=== PATIENT | female | born 1950 | race Caucasian/White ===

== ENCOUNTER 2020-07-15 11:32 | Inpatient (IN) | payer MEDICARE, SELFPAY ==
[2020-07-15] MEDS ORDERED: Albuterol 200 PUFF (6.7GM INHALER) ONE ×2 (12:30→13:07)
[2020-07-15 12:41] LABS: Hemoglobin 13.8 g/dL (12.0-16.0); Mean Corpuscular HGB CONC 32.2 g/dL (32.0-36.0); Mean Corpuscular Hemoglobin 31.8 pg (27.0-31.0); Mean Corpuscular Volume 98.6 fL (78.0-98.0); Mean Platelet Volume 10.3 fL (7.4-10.4); Platelet Count 268 thou/uL (130-400); RBC Distribution Width 14.7 % (11.5-14.5); Red Blood Cell (RBC) Count 4.36 mill/uL (4.20-5.40)
[2020-07-15 13:02] LABS: ALT (SGPT) 13 U/L (8-55); AST (SGOT) 17 U/L (5-34); Albumin 3.7 g/dL (3.4-4.8); Alkaline Phosphatase 185 U/L (40-110); Anion Gap 20 mmol/L (10-20); BUN (Urea Nitrogen) 26 mg/dL (9.8-20.1); Bilirubin, Total 0.5 mg/dL (0.2-1.2); Calc. Creatinine Clearance 0 mL/min (70-130); Calcium 9.1 mg/dL (7.8-10.44); Carbon Dioxide 24 mmol/L (23-31); Chloride 98 mmol/L (98-107); Globulin 3.5 g/dL (2.4-3.5); Glucose 141 mg/dL (80-115); Potassium 3.7 mmol/L (3.5-5.1); Protein, Total 7.2 g/dL (5.8-8.1); Sodium 138 mmol/L (136-145)
[2020-07-15 13:07] LABS: Band 4 % (5-11); Eosinophils 1 % (0-10); Lymphocytes 5 % (21-51); MDiff Complete? YES; Macrocytosis SLIGHT = 6-15 cells (100X) (0-5/hpf); Monocytes 4 % (0-10); Neutrophil 84 % (42-75); Platelet Morphology Comment Appears Adequate; Polychromasia MODERATE = 3-4 cells (100X) (0-2/hpf); White Blood Cell (WBC) Count 22.9 thou/uL (4.8-10.8)
[2020-07-15 13:31] LABS: CKMB 1.1 ng/mL (0-6.6)
[2020-07-15 13:39] LABS: SARS-CoV-2 NAA Rapid Test Not Detected (NotDetected)
[2020-07-15] MEDS ORDERED: Aspirin 325 MG TAB ONE (15:09)
[2020-07-15] MEDS ORDERED: Enoxaparin Sodium 60 MG/0.6 ML SYRINGE ONE (15:09)
[2020-07-15] MEDS ORDERED: Ondansetron PF 4 MG/2 ML Vial ONE (15:19)
[2020-07-15] MEDS ORDERED: Ondansetron ODT 4 MG TAB PO PRN (15:47)
[2020-07-15] MEDS ORDERED: Acetaminophen 325 MG TAB PO PRN (15:47)
[2020-07-15 16:39] LABS: Troponin I 0.178 ng/mL (< 0.028)
[2020-07-15 17:13] VITALS: BMI 19.5
[2020-07-15] MEDS: Nicotine 21 MG PATCH TD SCH (17:53)
[2020-07-15 18:59] LABS: Troponin I 0.172 ng/mL (< 0.028)
[2020-07-15] MEDS: Enoxaparin Sodium 60 MG/0.6 ML SYRINGE SC SCH (22:18)
[2020-07-16 05:05] LABS: #Basophils 0.1 thou/uL (0.0-0.2); #Eosinphils 0.1 thou/uL (0.0-0.7); #Lymphocytes 1.5 thou/uL (1.20-3.40); #Monocytes 1.5 thou/uL (0.11-0.59); %Basophils 0.3 % (0.0-1.0); %Eosinophils 0.3 % (0.0-10.0); %Lymphocytes 6.9 % (21.0-51.0); %Monocytes 6.9 % (0.0-10.0); %Neutrophils 85.6 % (42.0-75.0); Mean Corpuscular HGB CONC 32.3 g/dL (32.0-36.0); Mean Corpuscular Hemoglobin 31.8 pg (27.0-31.0); Mean Corpuscular Volume 98.2 fL (78.0-98.0); Mean Platelet Volume 10.7 fL (7.4-10.4); Platelet Count 295 thou/uL (130-400); RBC Distribution Width 14.6 % (11.5-14.5); Red Blood Cell (RBC) Count 3.77 mill/uL (4.20-5.40)
[2020-07-16 05:23] LABS: Anion Gap 19 mmol/L (10-20); BUN (Urea Nitrogen) 31 mg/dL (9.8-20.1); Calc. Creatinine Clearance 56 mL/min (70-130); Calcium 9.4 mg/dL (7.8-10.44); Carbon Dioxide 26 mmol/L (23-31); Chloride 99 mmol/L (98-107); Glucose 111 mg/dL (80-115); Potassium 3.8 mmol/L (3.5-5.1); Sodium 140 mmol/L (136-145)
[2020-07-16 07:20] LABS: Amphetamine Not Detected (NotDetected); Barbiturates Screen Not Detected (NotDetected); Benzodiazepine Screen Not Detected (NotDetected); Cocaine Metabolite Screen Not Detected (NotDetected); Medtox Control Line Valid? VALID (VALID); Medtox Reader # READER 4; Methadone Not Detected (NotDetected); Methamphetamine Not Detected (NotDetected); Opiate Screen Not Detected (NotDetected); Oxycodone Screen Not Detected (NotDetected); Phencyclidine (PCP) Not Detected (NotDetected); THC/Cannabinoid Screen Not Detected (NotDetected); Tricyclic Screen Not Detected (NotDetected)
[2020-07-16 07:30] LABS: Legionella Urinary Ag Negative (Negative); Strep pneumo Urine Ag NEGATIVE (NEGATIVE)
[2020-07-16] MEDS: predniSONE 20 MG TAB PO SCH (08:20)
[2020-07-16] MEDS: Enoxaparin Sodium 60 MG/0.6 ML SYRINGE SC SCH ×2 (08:21→20:39)
[2020-07-16] MEDS ORDERED: Azithromycin 250 MG TAB PO SCH (09:00)
[2020-07-16] MEDS ORDERED: Iopamidol 370 76% 100 ML VIAL ONE (10:34)
[2020-07-16] MEDS: Ipratropium Bromide 2.5 ml Neb NEB SCH ×3 (13:49→23:03)
[2020-07-16] MEDS: Nicotine 21 MG PATCH TD SCH (17:02)
[2020-07-17 05:22] LABS: Anion Gap 15 mmol/L (10-20); BUN (Urea Nitrogen) 34 mg/dL (9.8-20.1); Calc. Creatinine Clearance 65 mL/min (70-130); Calcium 9.3 mg/dL (7.8-10.44); Carbon Dioxide 26 mmol/L (23-31); Chloride 96 mmol/L (98-107); Glucose 109 mg/dL (80-115); Potassium 3.4 mmol/L (3.5-5.1); Sodium 134 mmol/L (136-145)
[2020-07-17] MEDS ORDERED: Ipratropium Bromide 2.5 ml Neb NEB PRN (05:55)
[2020-07-17 06:41] LABS: Band 7 % (5-11); Eosinophils 1 % (0-10); Hemoglobin 11.9 g/dL (12.0-16.0); Lymphocytes 9 % (21-51); MDiff Complete? YES; Mean Corpuscular Hemoglobin 32.4 pg (27.0-31.0); Mean Corpuscular Volume 98.2 fL (78.0-98.0); Mean Platelet Volume 10.6 fL (7.4-10.4); Monocytes 5 % (0-10); Neutrophil 77 % (42-75); Platelet Count 380 thou/uL (130-400); RBC Distribution Width 14.7 % (11.5-14.5); Red Blood Cell (RBC) Count 3.69 mill/uL (4.20-5.40); White Blood Cell (WBC) Count 21.7 thou/uL (4.8-10.8)
[2020-07-17] MEDS: Enoxaparin Sodium 60 MG/0.6 ML SYRINGE SC SCH (08:22)
[2020-07-17] MEDS: Thiamine 100 MG TAB PO SCH (08:23)
[2020-07-17] MEDS: Multivitamin W/ Minerals 1 TAB PO SCH (08:23)
[2020-07-17] MEDS: Folic Acid 1 MG TAB PO SCH (08:23)
[2020-07-17] MEDS: Azithromycin 250 MG TAB PO SCH (08:23)
[2020-07-17] MEDS: predniSONE 20 MG TAB PO SCH (08:23)
[2020-07-17] MEDS ORDERED: Non-Formulary Item 1 EACH (Tiotropium Bromide [Spiriva] 18 MCG Cap.W.Dev) INH SCH (09:00)
[2020-07-17] MEDS: Ipratropium Oral Inhaler INH SCH ×3 (11:17→19:36)
[2020-07-17] MEDS: Nicotine 21 MG PATCH TD SCH (15:14)
[2020-07-17] MEDS: Apixaban 5 MG TAB PO SCH (19:46)
[2020-07-18 05:24] LABS: Anion Gap 15 mmol/L (10-20); BUN (Urea Nitrogen) 15 mg/dL (9.8-20.1); Calc. Creatinine Clearance 82 mL/min (70-130); Calcium 9.3 mg/dL (7.8-10.44); Carbon Dioxide 28 mmol/L (23-31); Chloride 98 mmol/L (98-107); Glucose 93 mg/dL (80-115); Potassium 3.5 mmol/L (3.5-5.1); Sodium 137 mmol/L (136-145)
[2020-07-18] MEDS: Ipratropium Oral Inhaler INH SCH ×4 (07:22→18:51)
[2020-07-18] MEDS: Folic Acid 1 MG TAB PO SCH (08:11)
[2020-07-18] MEDS: Thiamine 100 MG TAB PO SCH (08:11)
[2020-07-18] MEDS: Multivitamin W/ Minerals 1 TAB PO SCH (08:11)
[2020-07-18] MEDS: predniSONE 20 MG TAB PO SCH (08:11)
[2020-07-18] MEDS: Apixaban 5 MG TAB PO SCH ×2 (08:11→20:20)
[2020-07-18] MEDS: Azithromycin 250 MG TAB PO SCH (08:11)
[2020-07-18] MEDS: Nicotine 21 MG PATCH TD SCH (15:57)
[2020-07-18] MEDS ORDERED: Haloperidol Lactate 5 MG/ML VIAL SLOW IVP PRN (18:16)
[2020-07-18] MEDS ORDERED: Melatonin 3 MG TAB PO PRN (19:43)
[2020-07-19 04:51] LABS: Hemoglobin 11.9 g/dL (12.0-16.0); Platelet Count 485 thou/uL (130-400)
[2020-07-19] MEDS: Ipratropium Oral Inhaler INH SCH ×3 (07:20→14:09)
[2020-07-19] MEDS: Azithromycin 250 MG TAB PO SCH (08:00)
[2020-07-19] MEDS: Folic Acid 1 MG TAB PO SCH (08:00)
[2020-07-19] MEDS: Multivitamin W/ Minerals 1 TAB PO SCH (08:00)
[2020-07-19] MEDS: Thiamine 100 MG TAB PO SCH (08:01)
[2020-07-19] MEDS: predniSONE 20 MG TAB PO SCH (08:01)
[2020-07-19] MEDS: Apixaban 5 MG TAB PO SCH (08:01)
[2020-07-19 15:58] VITALS: BP 123/69
[2020-07-19 15:59] VITALS: TEMP 97.9
== END 2020-07-19 16:30 | disposition home health service (06) | DRG 175 ==
LOC: ERS 11:32 → 2NO 14:43
PROVIDERS: ADMIT Family Medicine; ATTEND Family Medicine
DX: I26.99 Other pulmonary embolism without acute cor pulmonale (principal); J96.01 Acute respiratory failure with hypoxia; I21.A1 Myocardial infarction type 2; Z68.1 Body mass index [BMI] 19.9 or less, adult; E44.0 Moderate protein-calorie malnutrition; C34.90 Malignant neoplasm of unspecified part of unspecified bronchus or lung; J43.9 Emphysema, unspecified; Z20.822 Contact with and (suspected) exposure to COVID-19; F17.210 Nicotine dependence, cigarettes, uncomplicated; F10.10 Alcohol abuse, uncomplicated; D69.6 Thrombocytopenia, unspecified; Z88.8 Allergy status to other drugs, medicaments and biological substances
CPT/HCPCS: 0240U; 36415; 36416; 70470; 71045; 71275; 80048; 80053; 80306; 80307; 82553; 84145; 84484; 85014; 85018; 85025; 85049; 85379; 87449; 87899; 93005; 93010; 94640; 94664; 96365; 96372; 96375; J1650; J2405; J3490; J7512; J7620; Q9967